=== PATIENT | female | born 1990 | race Caucasian/White ===

== ENCOUNTER 2018-10-30 13:50 | Inpatient (IN) | payer OTHER ==
[~2018-10-30] VITALS: Ht 162.6 cm; Wt 84.8 kg
== END 2018-11-22 13:17 | disposition home or self-care (01) | DRG 807 ==
LOC: OB/GYN 11-20 07:14 → LDR 11-20 07:14 → OB/GYN 11-20 14:56 → LDR 11-21 13:50 → OB/GYN 11-22 13:17
PROVIDERS: ADMIT Obstetrics & Gynecology
PROC: 10E0XZZ Delivery of Products of Conception, External Approach (ICD-10-PCS; principal; 2018-11-20)
PROC: 0HQ9XZZ Repair Perineum Skin, External Approach (ICD-10-PCS; 2018-11-20)
PROC: 3E033VJ Introduction of Other Hormone into Peripheral Vein, Percutaneous Approach (ICD-10-PCS; 2018-11-20)
PROC: 4A1HXCZ Monitoring of Products of Conception, Cardiac Rate, External Approach (ICD-10-PCS; 2018-11-20)
DX: O70.1 Second degree perineal laceration during delivery (principal); Z37.0 Single live birth; Z3A.39 39 weeks gestation of pregnancy

== ENCOUNTER → 2018-11-18 | Outpatient (CLI) | payer OTHER | END | disposition home or self-care (01) | LOC: NST 14:46 | DX: Z34.83 Encounter for supervision of other normal pregnancy, third trimester (principal) ==

== ENCOUNTER 2024-12-15 14:15 | Inpatient (IN) | payer OTHER ==
[~2024-12-15] VITALS: Ht 162.6 cm; Wt 91.6 kg
[2024-12-29 17:31] VITALS: BP 101/71
[2024-12-29] MEDS ORDERED: MORPHINE SULFATE 4 MG/ML CARTRIDGE IV PRN (18:15)
[2024-12-29] MEDS ORDERED: RINGERS SOLUTION,LACTATED 1,000 ML IV SCH (18:15)
[2024-12-29 18:22] VITALS: BP 114/85
[2024-12-29] MEDS ORDERED: PRENATAL TABLE1 EAC1 PO (18:38)
[2024-12-29] MEDS ORDERED: AMPICILLIN SODIUM 2,000 MG VIAL IV ONE (18:45)
[2024-12-29 19:03] LABS: BASO % 0.3 % (0.1-1.2); EOS # 0.07 (0.04-0.54); EOS % 0.6 % (0.7-7.0); LYMPH # 1.35 (1.18-3.74); LYMPH % 12.0 % (19.3-53.1); MEAN PLATELET VOLUME 11.90 fl (9.4-12.4); MONO # 1.16 (0.24-0.82); MONO % 10.3 % (4.7-12.5); NEUT # 8.48 (1.56-6.13); NEUT % 75.6 % (34.0-71.1); RED CELL DISTRIBUTION WIDTH 14.4 % (11.6-14.4)
[2024-12-29 19:16] LABS: INR 0.94
[2024-12-29 19:26] LABS: ALT/SGPT 20.0 U/L (12-78); AST/SGOT 15.0 U/L (15-37); BILIRUBIN TOTAL 0.34 mg/dL (0.3-1.2); BUN CREA RATIO 18.0 (7.0-25.0); CREATININE SERUM 0.56 mg/dL (0.55-1.02); GFR 123.92; GLOBULINA 3.3 G/DL (2.4-3.5); GLUCOSE FASTING 84.0 mg/dL (65-100); OSMOLALITY SERUM 281.0 MOSM/KG (275-295)
[2024-12-29] MEDS ORDERED: AMPICILLIN SODIUM 1,000 MG VIAL IV SCH (21:00)
[2024-12-29 23:39] VITALS: BP 110/68
[2024-12-30] VITALS (8 sets, daily range): BP systolic 97–121; BP diastolic 66–80
[2024-12-30] MEDS ORDERED: ACETAMINOPHEN WITH CODEINE 1 UDTAB TABLET PO PRN (01:45)
[2024-12-30] MEDS ORDERED: OXYTOCIN 1,000 ML IV SCH (01:45)
[2024-12-30] MEDS ORDERED: LIDOCAINE HCL 1% 10ML VIAL IJ ONE (02:30)
[2024-12-30] MEDS ORDERED: CHLORHEXIDINE GLUCONATE 120 ML BOTTLE TOP ONE (02:30)
[2024-12-30] MEDS ORDERED: ERYTHROMYCIN BASE OPHT 1GM EACH TUBE OP ONE (02:30)
[2024-12-31 00:21] VITALS: BP 123/80
[2024-12-31 08:46] VITALS: BP 114/78
[2024-12-31 16:00] VITALS: BP 109/71
[2025-01-01 02:26] VITALS: BP 119/74
[2025-01-01 08:24] VITALS: BP 113/74
== END 2025-01-01 13:57 | disposition home or self-care (01) | DRG 807 ==
LOC: LDR 12-26 14:15 → OB/GYN 12-29 17:52 → LDR 12-29 17:52 → OB/GYN 12-30 02:22
PROVIDERS: Obstetrics & Gynecology; ADMIT Obstetrics & Gynecology Maternal & Fetal Medicine; ATTEND Obstetrics & Gynecology Maternal & Fetal Medicine
PROC: 4A1HXCZ Monitoring of Products of Conception, Cardiac Rate, External Approach (ICD-10-PCS; 2024-12-29)
PROC: 10E0XZZ Delivery of Products of Conception, External Approach (ICD-10-PCS; principal; 2024-12-30)
PROC: 0W8NXZZ Division of Female Perineum, External Approach (ICD-10-PCS; 2024-12-30)
DX: O99.824 Streptococcus B carrier state complicating childbirth (principal); Z37.0 Single live birth; Z3A.40 40 weeks gestation of pregnancy

== ENCOUNTER 2024-12-18 15:17 | Outpatient (CLI) | payer OTHER | END 2024-12-18 16:25 | disposition home or self-care (01) | LOC: NST 15:17 | PROVIDERS: ATTEND Obstetrics & Gynecology | DX: Z34.83 Encounter for supervision of other normal pregnancy, third trimester (principal) ==

== ENCOUNTER 2024-12-28 10:54 | Outpatient (CLI) | payer OTHER ==
[2024-12-29] MEDS ORDERED: PRENATAL TABLE1 EAC1 PO (18:38)
== END 2024-12-28 12:20 | disposition home or self-care (01) ==
LOC: NST 10:54
PROVIDERS: ATTEND Obstetrics & Gynecology Maternal & Fetal Medicine
DX: Z34.83 Encounter for supervision of other normal pregnancy, third trimester (principal)